=== PATIENT | female | born 1950 | race Caucasian/White ===

== ENCOUNTER 2024-12-25 11:04 | Outpatient (AMB) | payer OTHER, SELFPAY ==
[2024-12-25 11:11] VITALS: BMI 20.7
--- NOTE | 2024-12-25 11:11 | A.SPINEOV_ITS ---
Vital Signs 12/25/24 11:11 Height 5 ft 3 in Weight 117 lb BMI 20.7 Intake Visit Reasons: scoliosis Intake Note: Mrs. Pérez is here today c/o Stiffness with mid back pain. 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 HPI: This 74-year-old female underwent treatment for breast cancer with chemo and radiotherapy. She states that since that time she has developed the scoliosis with stiffness and discomfort in the upper thoracic and lumbar region. The symptoms come after prolonged walking or running. Also doing laundry with twisting increases her symptoms. She denies weakness or numbness. No pulmonary issues. She tried physical therapy exercises. PMH: Hypertension, breast cancer Medications: Gabapentin, lorazepam Allergies: Penicillin Social history: . Nonsmoker Physical Exam: Height 5'3 weight 117 lb. On inspection there is a thoracolumbar scoliosis with the apex towards the right side and a rotatory component. No neurological deficits for motor or sensation. Radiological Studies: MRI done at [facility] shows a thorac olumbar scoliosis. I obtained x-rays of the thoracic and lumbar spine that show thoracolumbar scoliosis with the apex towards the right side being around T12- L2. The curve is approximately 30 degrees in coronal plane. The 1st level where there is the endplates is approximately T5-T6. Impression/Plan: This patient is symptomatic from a thoracolumbar scoliosis with the apex at the thoracolumbar junction. The patient states that she was unknown with the scoliosis. I am wondering if the chemotherapy/radiotherapy influence the function of the paraspinal muscles causing this deformity. We luna ve no comparison to x-rays. I advised her to repeat x-rays in 1 year to see if the curve is further increasing. For now, I recommended again surgery. She could do facet blocks in the thoracolumbar junction to see if that will address her discomfort. Thank you for allowing me to participate in your patients care. total time spent was 50 minutes in counseling ,coordination of plan, personal review of imaging, surgical decision making and subsequent plan Jesse Alvarenga MD, PhD Spine Fellowship Trained Neurosurgeon Director, [facility] Orders: Orders XR lumbar spine 2-3V Today M41.50 - Other secondary scoliosis, site unspecified XR thoracic spine 2V Today M41.50 - Other secondary scoliosis, site unspecified Coding Level of Care Code New Pt Level 4 (68147) Diagnoses Scoliosis due to degenerative disease of spine in adult patient M41.50
--- OUTSIDE RECORDS SUMMARY | 2024-12-25 12:54 | XMS_ITS | Encounter Summary ---
Author Organization [facility] Address [address] [place] [phone] Phone Care Team Providers Care Barn And Property Manager Name Role Phone Aysha Olvera DO Primary Care Provider [phone] Encounter Details Date Type Department Care Team (Late st Contact Info) Description 02/20/2019 Procedure Pass [facility] Imaging [address] [place] [address] Social History Tobacco Use Types Packs/Day Years Used Date Smoking Tobacco: Never Assessed Comments Unknown Sex and Gender Information Value Date Recorded Sex Assigned at Not on file Legal Sex Female 12:04 PM EDT Gender Identity Not on file Sexual Orientation Not on file documented as of this encounter Plan of Treatment Not on file documented as of this encounter Visit Diagnoses Not on filedocumented in this encounter Care Teams Barn And Property Manager Relationship Specialty Start Date End Date Aysha Olvera DO [address] [place] [phone] PCP - General Internal Medicine 11/21/18 documented as of this encounter Additional Source Comments The information contained in this document represents components of the legal health record. It is not the complete legal health record.[facility]
--- OUTSIDE RECORDS SUMMARY | 2024-12-25 12:54 | XMS_ITS | Encounter Summary ---
Author Organization [facility] Address [address] [place] [phone] Phone Care Team Providers Care Cartographic Designer Name Role Phone Aysha Olvera DO Primary Care Provider [phone] Encounter Details Date Type Department Care Team (Late st Contact Info) Description 02/20/2019 Procedure Pass [facility] Imaging [address] [place] [address] Social History Tobacco Use Types Packs/Day Years [...] on filedocumented in this encounter Care Teams Cartographic Designer Relationship Specialty Start Date End Date Aysha Olvera DO [address] [place] [phone] PCP - General Internal Medicine 11/21/18 documented as of this encounter Additional Source Comments The information contained in this document represents components of the legal health record. It is not the complete legal health record.[facility]
--- OUTSIDE RECORDS SUMMARY | 2024-12-25 12:54 | XMS_ITS | Clinical Summary ---
Author Organization [facility] Address [address] [place] [address] [place] [phone] Phone Care Team Providers Care Entry Level Management Name Role Phone Aysha Olvera Primary Care Provider [phone] Active Problems Problem Noted Date Diagnosed Date Breast cancer 11/06/2013 Overview (06/04/2014): Breast cancer Social History Tobacco Use Types Packs/Day Years Used Date Smoking Tobacco: Never Assessed Education Answer Date Recorded Are you interested in more education? Not on raven e 08/10/2022 Are you concerned about learning? Not on file 08/10/2022 No 08/10/2022 No 08/10/2022 Digital Access Answer Date Recorded No 09/10/2022 No 09/10/2022 No 09/10/2022 Reliable internet access at home? Not on file 09/10/2022 Device with a working camera? Not on file Comments Unknown Sex and Gender Information Value Date Recorded Sex Assigned at Not on file Legal Sex Female 12:04 PM EDT Gender Identity Not on file Sexual Orientation Not on file Plan of Treatment Health Maintenance Due Date Last Done Comments Adult Td,Tdap Booster 1952 LIPID PANEL 1952 DEPRESSION SCREENING 1964 SMOKING Hx and SMOKELESS TOBACCO SCREENING 1965 HEPATITIS C SCREENING 1970 PNEUMOCOCCAL VACCINES (50+ years) (1 of 2 - PCV) 06/28/1971 ZOSTER VACCINES (1 of 2) 06/28/1971 MAMMOGRAM 1992 COLOGUARD 1997 COLONOSCOPY 1997 COLORECTAL CANCER SCREENING 1997 FIT TEST 1997 FOBT 1997 SIGMOIDOSCOPY 1997 VIRTUAL COLONOSCOPY 1997 OSTEOPOROSIS SCREENING INITI AL (ONE-TIME) 2017 COVID-19 VACCINE (3 - 2023-2 5 season) 2023 08/25/2020, 07/28/2020 INFLUENZA VACCINE (#1) 2024 RSV VACCINE (1 - 1-dose 75+ series) 06/28/2027 HEPATITIS A VACCINES Aged Out No long er eligible based on patient's age to complete this topic HIB VACCINES Aged Out No longer eligi ble based on patient's age to complete this topic MENINGOCOCCAL VACCINES (ACWY) Aged Out No longer eligible based on patient's age to complete this topic MENINGOCOCCAL VACCINES (B) Aged Out N o longer eligible based on patient's age to complete this topic Medical Devices Not on file [place] [address] [address] [employer] MEDICARE PART A & B [facility] FAMILY HEALTH PLAN [facility] Address: [address] [address] MEDICARE PART A & B [facility] [employer] MEDICARE PART A & B MEDICARE PART A & B [facility] FAMILY [employer] [facility]AN [facility] Address: [address] [address] MEDICARE PART A & B [employer] MEDICARE PART A & B Member Subscriber Plan / Payer (Ef fective 2016-Present) Name:Estefania Castrejon Member ID:[id number] Relation to Subscriber:Self Name:Estefania Castrejon Subscriber ID:[id number] Payer ID:[id number] Group ID:Not on file Type:Medicare Address: [employer] [address] [facility] FAMILY [employer] PLAN MEDICARE PART A & B [facility] flate[facility] FAMILY HE[employer] PLAN MEDICARE PART A & B [facility]AN [facility] Address: [address] [address] MEDICARE PART A & B Care Teams Entry Level Management Relationship Specialty Start Date End Date Aysha Olvera DO [address] [place] [address] PCP - General Internal Medicine 11/21/18 Additional Source Comments The information contained in this document represents components of the legal health record. It is not the complete legal health record.[facility]
== END 2024-12-25 12:18 | disposition home or self-care (01) ==
LOC: HO.HNS 11:04
PROVIDERS: Visit Provider Neurological Surgery
DX: M51.35 Other intervertebral disc degeneration, thoracolumbar region (principal); M41.50 Other secondary scoliosis, site unspecified
CPT/HCPCS: 99204

== ENCOUNTER 2024-12-25 11:04 | Outpatient (REF) | payer OTHER, SELFPAY ==
--- NOTE | ~2024-12-25 | XR_ITS ---
EXAMINATION: XR LUMBOSACRAL SPINE CLINICAL INFORMATION: M41.50 - Other secondary scoliosis, site unspecified COMPARISON: None available. TECHNIQUE: AP and lateral views FINDINGS: There is a dextroconvex rotoscoliosis apex at the thoracolumbar junction. There is a levoconvex scoliosis apex at L3-4. Multilevel marginal osteophyte formation and endplate sclerosis decreased intervertebral disc height throughout the axial skeleton. Osteopenia versus osteoporosis. No gross malalignment. XR/XR lumbar spine 2-3V IMPRESSION: Dextroconvex rotoscoliosis, thoracolumbar spine and levoconvex scoliosis mid lumbar spine. Multilevel moderate to severe spondylosis. Electronically signed by: Shun Thrasher MD 12/25/2024 12:03 PM EDT
--- NOTE | ~2024-12-25 | XR_ITS ---
EXAMINATION: XR THORACIC SPINE CLINICAL INFORMATION: M41.50 - Other secondary scoliosis, site unspecified COMPARISON: None available. TECHNIQUE: AP and lateral views FINDINGS: S-shaped curvature of the thoracolumbar spine with a dextroconvex morphology at the thoracolumbar junction and mild levoconvex curvature in the upper thoracic. There is a likely abnormal segmentation of T1 and T2 vertebra. Osteopenia versus osteoporosis. No lytic or blastic lesions. XR/XR thoracic spine 2V IMPRESSION: Scoliosis, thoracolumbar spine with spondylosis. 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 Electronically signed by: Shun Thrasher MD 12/25/2024 12:05 PM EDT
== END 2024-12-25 11:05 | disposition home or self-care (01) ==
LOC: HO.HOSX 11:04
PROVIDERS: Visit Provider Neurological Surgery
DX: M41.55 Other secondary scoliosis, thoracolumbar region (principal)
CPT/HCPCS: 72070; 72100; 99202

== ENCOUNTER → 2024-12-25 11:22 | Outpatient (BNV) | payer OTHER, SELFPAY | PROVIDERS: Visit Provider Radiology Diagnostic Radiology | DX: M41.86 Other forms of scoliosis, lumbar region (principal); M47.815 Spondylosis without myelopathy or radiculopathy, thoracolumbar region | CPT/HCPCS: 72070; 72100 ==